=== PATIENT | male | born 1945 | race Caucasian/White ===

== ENCOUNTER 2016-03-31 14:06 | Inpatient (IN) | payer MEDICARE, MEDICAID ==
[~2016-03-31] VITALS: Ht 172.7 cm; Wt 72.6 kg
[~2016-03-31 14:06] MED LIST: ATENOLOL25 MG ORAL
[2016-03-31] MEDS ORDERED: COREG3.125 MG ORAL (15:40)
[2016-03-31] MEDS ORDERED: ASPIR 8181 MG ORAL (15:40)
[2016-03-31] MEDS ORDERED: MAGNESIUM ALUMIN1 GM ORAL (15:40)
[2016-03-31] MEDS ORDERED: VITAMIN D250000 UNI1 ORAL (15:41)
[2016-03-31] MEDS ORDERED: ELIQUIS5 MG PO (15:41)
[2016-03-31] MEDS ORDERED: LIPITOR20 MG ORAL (15:44)
[2016-03-31] MEDS ORDERED: LISINOPRIL30 MG ORAL (15:44)
[2016-03-31] MEDS ORDERED: MIRALAX17 G2 ORAL (15:46)
[2016-03-31] MEDS ORDERED: MULTI VITAMIN1 EACH ORAL (15:46)
[2016-03-31] MEDS ORDERED: MILK OF MA400 MG/51 ORAL (15:46)
[2016-03-31] MEDS ORDERED: MELATONIN3 M2 PO (15:46)
[2016-03-31] MEDS ORDERED: NORVASC10 MG ORAL ×2 (15:47→15:51)
[2016-03-31] MEDS ORDERED: PEPCID20 MG ORAL ×2 (15:47→15:51)
[2016-03-31] MEDS ORDERED: NICODERM CQ1 EAC3 TD (15:47)
[2016-03-31] MEDS ORDERED: ZOFRAN ODT4 MG ORAL (15:51)
[2016-03-31] MEDS ORDERED: SEROQUEL50 MG ORAL (15:51)
[2016-03-31] MEDS ORDERED: ACETAMINOPHEN120 MG ORAL (15:51)
[2016-03-31] MEDS ORDERED: PROZAC20 MG ORAL (15:51)
[2016-03-31] MEDS ORDERED: TRAZODONE HCL50 MG ORAL (15:51)
[2016-03-31] MEDS ORDERED: SENNA8.6 M2 PO (15:51)
[2016-03-31 15:53] LABS: BASOPHILS % (AUTO) 1.3 % (0.0-2.0); EOSINOPHILS % (AUTO) 2.2 % (0.0-3.0); LYMPHOCYTES % (AUTO) 16.4 % (20.0-45.0); MEAN CORPUSCULAR HEMOGLOBIN 31.4 PG (27.0-31.0); MEAN CORPUSCULAR HGB CONC 34.7 G/DL (32.0-36.0); MEAN CORPUSCULAR VOLUME 91 FL (80-99); MONOCYTES % (AUTO) 10.2 % (1.0-10.0); NEUTROPHILS % (AUTO) 69.9 % (45.0-75.0); PLATELET COUNT 251 K/UL (150-450); RED BLOOD COUNT 3.92 M/UL (4.70-6.10); RED CELL DISTRIBUTION WIDTH 13.2 % (11.6-14.8); WHITE BLOOD COUNT 10.2 K/UL (4.8-10.8)
[2016-03-31 15:59] VITALS: BP 113/56
[2016-03-31 16:09] LABS: ALANINE AMINOTRANSFERASE 23 U/L (3-41); ALBUMIN/GLOBULIN RATIO 1.3 (1.0-2.7); ANION GAP 13 (5-15); ASPARTATE AMINO TRANSFERASE 23 U/L (5-40); CALCIUM 9.2 mg/dL (8.6-10.2); CARBON DIOXIDE 24 mEQ/L (20-30); CHLORIDE 98 mEQ/L (98-107); CREATININE 0.9 mg/dL (0.7-1.2); GLOMERULAR FILTRATION RATE > 60 mL/min (>60); HEMOLYSIS 46; POTASSIUM 4.6 mEQ/L (3.4-4.9); SODIUM 135 mEQ/L (135-145)
[2016-03-31 16:10] LABS: TROPONIN I < 0.30 ng/mL (<=0.30)
[2016-03-31 16:19] LABS: CKMB 2.8 ng/mL (< 6.7)
--- NOTE | 2016-03-31 16:30 | Emergency Room Report ---
History of Present Illness General Chief Complaint: Chest Pain Source: Patient, Medical Record, EMS Present Illness HPI 70-year-old male presents to ED for evaluation. Per EMS patient complaining of chest pain at his complex and home. Symptoms started approximately 45 minutes prior to arrival. Nursing staff noticed that patient was pointing at his chest. Patient is aphasic due to stroke and is unable to provide any additional history. Patient was given aspirin and nitroglycerin by EMS. Upon arrival patient showing no signs of distress. Denies any chest pain at this time. No reported fevers or chills. No reported shortness of breath. No reported cough. No other aggravating or relieving factors. No other associated symptoms Allergies: Coded Allergies: PENICILLINS (Verified Allergy, Unknown, 09/24/15) Uncoded Allergies: PENICILINS (Allergy, Unknown, 03/31/16) Patient History Past Medical History: HTN, GERD, CVA/TIA, psych hx Social History: Denies: alcohol use, drug use, smoking Immunizations: UTD Reviewed Nursing Documentation: PMH: Agreed, PSxH: Agreed Nursing Documentation-PMH Hx Hypertension: Yes Hx Cancer: No Hx Gastrointestinal Problems: Yes - GERD History Of Psychiatric Problem: Yes - Major Depression, Schizoaffective disorder Hx Neurological Problems: No Hx Cerebrovascular Accident: Yes - right sided weakness, aphasia, dysphagia Review of Systems All Other Systems: negative except mentioned in HPI Physical Exam Vital Signs Date Time Temp Pulse Resp B/P Pulse Ox O2 Delivery O2 Flow Rate FiO2 03/31/16 14:05 98.4 87 18 147/70 98 Room Air Sp02 EP Interpretation: reviewed, normal General Appearance: no apparent distress, alert, GCS 15, non-toxic Head: normocephalic, atraumatic Eyes: bilateral eye PERRL, bilateral eye normal inspection ENT: hearing grossly normal, normal pharynx, no angioedema, normal voice Neck: full range of motion, supple/symm/no masses Respiratory: chest non-tender, lungs clear, normal breath sounds, speaking full sentences Cardiovascular #1: regular rate, rhythm, no edema Cardiovascular #2: 2+ carotid (R), 2+ carotid (L), 2+ radial (R), 2+ radial (L) , 2+ dorsalis pedis (R), 2+ dorsalis pedis (L) Gastrointestinal: normal bowel sounds, non tender, soft, non-distended, no guarding, no rebound Rectal: deferred Genitourinary: normal inspection, no CVA tenderness Musculoskeletal: back normal, gait/station normal, normal range of motion, non- tender Neurologic: alert, motor strength/tone normal, sensory intact, aphasia Psychiatric: mood/affect normal, no suicidal/homicidal ideation Reflexes: 3+ bicep (R), 3+ bicep (L), 3+ tricep (R), 3+ tricep (L), 3+ knee (R) , 3+ knee (L) Skin: normal color, no rash, warm/dry, well hydrated Lymphatic: no adenopathy Medical Decision Making Diagnostic Impression: Primary Impression: ACS (acute coronary syndrome) ER Course Hospital Course 70-year-old male presents ED complaining of chest pain at convalescent home. Improved with aspirin and nitroglycerin Differential diagnoses include: MO/unstable angina, contusion, muscle strain, PTX, rib fracture Clinical course Patient placed on stretcher. on cardiac surgeon. After initial history and physical I ordered labs, EKG, chest x-ray labs reviewed- no leukocytosis, hb/hct stable, electrolytes ok, trop negative Chest x-ray- no acute process Case discussed with Dr. Ovalle/Farhan and he agreed to accept the patient to his service for further care and support I. I feel this is a highly complex case requiring extensive working including EKG/Rhythm strip, Xray/CT/US, Blood/urine lab work, repeat exams while in ED, and administration of strong opiates/narcotics for pain control, admission to hospital or close patient follow up. Diagnosis - ACS admitted to telemetry in serious condition Labs Test 03/31/16 15:30 03/31/16 16:25 White Blood Count 10.2 K/UL (4.8-10.8) Red Blood Count 3.92 M/UL (4.70-6.10) Hemoglobin 12.3 G/DL (14.2-18.0) Hematocrit 35.5 % (42.0-52.0) Mean Corpuscular Volume 91 FL (80-99) Mean Corpuscular Hemoglobin 31.4 PG (27.0-31.0) Mean Corpuscular Hemoglobin Concent 34.7 G/DL (32.0-36.0) Red Cell Distribution Width 13.2 % (11.6-14.8) Platelet Count 251 K/UL (150-450) Mean Platelet Volume 6.0 FL (6.5-10.1) Neutrophils (%) (Auto) 69.9 % (45.0-75.0) Lymphocytes (%) (Auto) 16.4 % (20.0-45.0) Monocytes (%) (Auto) 10.2 % (1.0-10.0) Eosinophils (%) (Auto) 2.2 % (0.0-3.0) Basophils (%) (Auto) 1.3 % (0.0-2.0) Sodium Level 135 mEQ/L (135-145) Potassium Level 4.6 mEQ/L (3.4-4.9) Chloride Level 98 mEQ/L (98-107) Carbon Dioxide Level 24 mEQ/L (20-30) Anion Gap 13 (5-15) Blood Urea Nitrogen 19 mg/dL (7-23) Creatinine 0.9 mg/dL (0.7-1.2) Estimat Glomerular Filtration Rate > 60 mL/min (>60) Glucose Level 118 mg/dL (74-106) Calcium Level 9.2 mg/dL (8.6-10.2) Total Bilirubin 0.2 mg/dL (0.0-1.2) Aspartate Amino Transf (AST/SGOT) 23 U/L (5-40) Alanine Aminotransferase (ALT/SGPT) 23 U/L (3-41) Alkaline Phosphatase 56 U/L (40-129) Total Creatine Kinase 46 U/L (38-174) Creatine Kinase MB 2.8 ng/mL (< 6.7) Creatine Kinase MB Relative Index 6.0 Troponin I < 0.30 ng/mL (<=0.30) Pro-B-Type Natriuretic Peptide 449 pg/mL (0-125) Total Protein 6.0 g/dL (6.6-8.7) Albumin 3.4 g/dL (3.5-5.2) Globulin 2.6 g/dL Albumin/Globulin Ratio 1.3 (1.0-2.7) EKG Diagnostic Results Rate: normal Rhythm: NSR ST Segments: other - twave inversions in lateral leads ASA given to the pt in ED: No - given by ems Rhythm Strip Diag. Results EP Interpretation: yes Rhythm: NSR, no PVC's, no ectopy Chest X-Ray Diagnostic Results EP Interpretation: Yes Findings: no consolidation, no effusion, no pneumothorax, no acute cardiopulmonary disease Number of Views: 1 Last Vital Signs Date Time Temp Pulse Resp B/P Pulse Ox O2 Delivery O2 Flow Rate FiO2 03/31/16 15:59 67 18 113/56 98 Room Air 03/31/16 14:05 98.4 Status: improved Disposition: ADMITTED INPATIENT Condition: Serious Referrals: PRABHU ALVARADO (PCP) TRINA HANLEY M.D. Mar 31, 2016 16:29
[2016-03-31 16:34] LABS: APPEARANCE,URINE CLEAR; KETONES,URINE 1+ (NEGATIVE); LEUKOCYTE ESTERASE ,URINE NEGATIVE (NEGATIVE); NITRITE,URINE NEGATIVE (NEGATIVE); PH,URINE 5 (4.5-8.0); PROTEIN,URINE NEGATIVE (NEGATIVE); UROBILINOGEN,URINE NORMAL MG/DL (0.0-1.0)
[2016-03-31 18:03] VITALS: BP 154/52
[2016-03-31 21:10] VITALS: BP 123/38
[2016-04-01 00:23] VITALS: BP 141/75
[2016-04-01] MEDS ORDERED: Norco 5mg/325mg tab ORAL PRN (00:30)
[2016-04-01] MEDS ORDERED: QUETIAPINE FUMA25 MG ORAL (00:50)
[2016-04-01] MEDS ORDERED: Miralax 17gm pkt ORAL PRN (01:00)
[2016-04-01] MEDS ORDERED: Milk of Magnesia 30ml Ud ORAL PRN (01:00)
[2016-04-01 04:21] VITALS: BP 137/70
[2016-04-01 04:56] LABS: EOSINOPHILS % (AUTO) 2.8 % (0.0-3.0); LYMPHOCYTES % (AUTO) 17.9 % (20.0-45.0); MEAN CORPUSCULAR HEMOGLOBIN 33.2 PG (27.0-31.0); MEAN CORPUSCULAR HGB CONC 37.2 G/DL (32.0-36.0); MEAN CORPUSCULAR VOLUME 89 FL (80-99); MONOCYTES % (AUTO) 11.3 % (1.0-10.0); PLATELET COUNT 216 K/UL (150-450); RED BLOOD COUNT 3.84 M/UL (4.70-6.10); RED CELL DISTRIBUTION WIDTH 12.6 % (11.6-14.8); WHITE BLOOD COUNT 9.1 K/UL (4.8-10.8)
[2016-04-01 05:08] LABS: ANION GAP 11 (5-15); CALCIUM 9.1 mg/dL (8.6-10.2); CARBON DIOXIDE 26 mEQ/L (20-30); CHLORIDE 107 mEQ/L (98-107); CREATININE 0.7 mg/dL (0.7-1.2); GLOMERULAR FILTRATION RATE > 60 mL/min (>60); HEMOLYSIS 11; POTASSIUM 4.6 mEQ/L (3.4-4.9); SODIUM 144 mEQ/L (135-145)
[2016-04-01 05:58] LABS: TROPONIN I < 0.30 ng/mL (<=0.30)
[2016-04-01 06:54] LABS: CHOLESTEROL 178 mg/dL (< 200); CHOLESTEROL/HDL RATIO 5.6 (3.3-4.4); HEMOGLOBIN A1C 5.6 % (< 6.0); LDL CHOLESTEROL (CALC.) 127 mg/dL (60-99)
[2016-04-01 07:51] VITALS: BP 189/88
[2016-04-01] MEDS ORDERED: Lisinopril 20mg tab ORAL SCH (09:00)
[2016-04-01] MEDS ORDERED: Aspirin Baby 81mg ORAL SCH (09:00)
[2016-04-01] MEDS ORDERED: Heparin 5000 units/ml inj SUBQ SCH ×2 (09:00→10:30)
[2016-04-01] MEDS: Eliquis 2.5mg tablet ORAL SCH ×2 (10:15→18:25)
[2016-04-01 10:57] LABS: TROPONIN I < 0.30 ng/mL (<=0.30)
[2016-04-01 11:21] VITALS: BP 148/76
--- NOTE | 2016-04-01 14:07 | GI Initial Consult Note ---
History of Present Illness General Date patient seen: Apr 01, 2016 Time patient seen: 14:00 Reason for Hospitalization: Chest Pain Referring physician: SALEEM WALL Reason for Consultation: ESOPHAGITIS Present Illness HPI 70-year-old male presents to ED for evaluation. Per EMS patient complaining of chest pain at his complex and home. Symptoms started approximately 45 minutes prior to arrival. Nursing staff noticed that patient was pointing at his chest. Patient is aphasic due to stroke and is unable to provide any additional history. Patient was given aspirin and nitroglycerin by EMS. Upon arrival patient showing no signs of distress. Denies any chest pain at this time. No reported fevers or chills. No reported shortness of breath. No reported cough. No other aggravating or relieving factors. No other associated symptoms GI NOTE: HPI as noted above. GI consulted for possible esophagitis/throat irritation. Pt seen on floor awake, A&Ox4 NAD with slurred speech due to hx of CVA/TIA . Per RN report patient ate 100 percent lunch with no active signs of nausea or vomiting. Pt agreed by nodding his head that originally he had chest pain but has now resolved. Noted troponin negative x 3. Denies any abdominal pain, diarrhea or constipation. Pt c/o of throat irritation. Stable H&H. He presents with mild anemia today. Unknown history of any endoscopic procedures. Home Meds Reported Medications Quetiapine Fumarate* (SEROQUEL*) 25 Mg Tablet, 25 MG ORAL QID Y for Agitation, TAB 04/01/16 Ondansetron Odt* (ZOFRAN ODT*) 4 Mg Tab.rapdis, 4 MG ORAL Q6H Y for Nausea & Vomiting, #30 TAB 03/31/16 Acetaminophen* (TYLENOL*) 120 Mg Supp.rect, 325 MG ORAL Q4H Y for Mild Pain/ Temp > 100.5, SUPP 03/31/16 Trazodone Hcl* (DESYREL*) 50 Mg Tablet, 50 MG ORAL BEDTIME, TAB 03/31/16 Sennosides (SENNA) 8.6 Mg Tablet, 8.6 MG PO BEDTIME, TAB 03/31/16 Fluoxetine Hcl* (PROZAC*) 20 Mg Capsule, 20 MG ORAL DAILY, CAP 03/31/16 Nicotine (NICODERM CQ) 1 Each Patch.td24, 1 EACH TD, PATCH 03/31/16 Famotidine (PEPCID) 20 Mg Tablet, 20 MG ORAL BID, #7 TAB 0 Refills 03/31/16 Amlodipine Besylate (Norvasc) 10 Mg Tablet, 10 MG ORAL DAILY, TAB 03/31/16 Multivitamin (MULTI VITAMIN DAILY) 1 Each Tablet, 1 TAB ORAL DAILY, #30 TAB 0 Refills 03/31/16 Polyethylene Glycol 3350* (MIRALAX*) 17 Gm Powd.pack, 17 GM ORAL DAILY Y for Constipation, PACKET 03/31/16 Magnesium Hydroxide* (MILK OF MAGNESIA*) 400 Mg/5 Ml Oral.susp, 30 ML ORAL DAILY Y for Constipation, ML 03/31/16 Melatonin (Melatonin) 3 Mg Tab.rapdis, 3 MG PO BEDTIME, TAB 03/31/16 Lisinopril* (LISINOPRIL*) 30 Mg Tablet, 20 MG ORAL DAILY, TAB 03/31/16 Atorvastatin Calcium* (LIPITOR*) 20 Mg Tablet, 20 MG ORAL BEDTIME, TAB 03/31/16 Ergocalciferol (Vitamin D2)* (VITAMIN D*) 50,000 Unit Capsule, 1 CAP ORAL ONCE A WEEK, CAP 03/31/16 Apixaban (ELIQUIS) 5 Mg Tablet, 5 MG PO BID, TAB 03/31/16 Carvedilol (Coreg) 3.125 Mg Tablet, 3.125 MG ORAL EVERY 12 HOURS, TAB 03/31/16 Aspirin* (ASPIR 81*) 81 Mg Tablet.dr, 81 MG ORAL DAILY, TAB 03/31/16 Aluminum Silicate Magnesium (MAGNESIUM ALUMINUM SILICATE) 1 Gm Powder, 30 ML ORAL EVERY 4 HOURS Y for heartburn, GM 03/31/16 Discontinued Reported Medications Quetiapine Fumarate (SEROQUEL) 50 Mg Tablet, 25 MG ORAL DAILY, #15 TAB 0 Refills 03/31/16 Famotidine (PEPCID) 20 Mg Tablet, 20 MG ORAL BEDTIME, #7 TAB 0 Refills 03/31/16 Amlodipine Besylate (Norvasc) 10 Mg Tablet, 10 MG ORAL DAILY, TAB 03/31/16 Atenolol* (TENORMIN*) 25 Mg Tablet, 12.5 MG ORAL DAILY, TAB 09/24/15 Med list reviewed/reconciled: Yes Allergies: Coded Allergies: PENICILLINS (Verified Allergy, Unknown, 09/24/15) Uncoded Allergies: PENICILINS (Allergy, Unknown, 03/31/16) Patient History Limited by: medical condition - dysphagia PMH Narrative Past Medical History: HTN, GERD, CVA/TIA, psych hx Social History: Denies: alcohol use, drug use, smoking Immunizations: UTD Reviewed Nursing Documentation: PMH: Agreed, PSxH: Agreed Nursing Documentation-PMH Hx Hypertension: Yes Hx Cancer: No Hx Gastrointestinal Problems: Yes - GERD History Of Psychiatric Problem: Yes - Major Depression, Schizoaffective disorder Hx Neurological Problems: No Hx Cerebrovascular Accident: Yes - right sided weakness, aphasia, dysphagia Review of Systems All Other Systems: negative except mentioned in HPI Physical Exam Vital Signs Date Time Temp Pulse Resp B/P Pulse Ox O2 Delivery O2 Flow Rate FiO2 03/31/16 14:05 98.4 87 18 147/70 98 Room Air Sp02 EP Interpretation: reviewed Labs Laboratory Tests Test 03/31/16 15:30 03/31/16 16:25 04/01/16 04:15 04/01/16 10:15 White Blood Count 10.2 K/UL (4.8-10.8) 9.1 K/UL (4.8-10.8) Red Blood Count 3.92 M/UL (4.70-6.10) L 3.84 M/UL (4.70-6.10) L Hemoglobin 12.3 G/DL (14.2-18.0) L 12.8 G/DL (14.2-18.0) L Hematocrit 35.5 % (42.0-52.0) L 34.3 % (42.0-52.0) L Mean Corpuscular Volume 91 FL (80-99) 89 FL (80-99) Mean Corpuscular Hemoglobin 31.4 PG (27.0-31.0) H 33.2 PG (27.0-31.0) H Mean Corpuscular Hemoglobin Concent 34.7 G/DL (32.0-36.0) 37.2 G/DL (32.0-36.0) H Red Cell Distribution Width 13.2 % (11.6-14.8) 12.6 % (11.6-14.8) Platelet Count 251 K/UL (150-450) 216 K/UL (150-450) Mean Platelet Volume 6.0 FL (6.5-10.1) L 5.0 FL (6.5-10.1) L Neutrophils (%) (Auto) 69.9 % (45.0-75.0) 67.0 % (45.0-75.0) Lymphocytes (%) (Auto) 16.4 % (20.0-45.0) L 17.9 % (20.0-45.0) L Monocytes (%) (Auto) 10.2 % (1.0-10.0) H 11.3 % (1.0-10.0) H Eosinophils (%) (Auto) 2.2 % (0.0-3.0) 2.8 % (0.0-3.0) Basophils (%) (Auto) 1.3 % (0.0-2.0) 1.0 % (0.0-2.0) Sodium Level 135 mEQ/L (135-145) 144 mEQ/L (135-145) Potassium Level 4.6 mEQ/L (3.4-4.9) 4.6 mEQ/L (3.4-4.9) Chloride Level 98 mEQ/L (98-107) 107 mEQ/L (98-107) Carbon Dioxide Level 24 mEQ/L (20-30) 26 mEQ/L (20-30) Anion Gap 13 (5-15) 11 (5-15) Blood Urea Nitrogen 19 mg/dL (7-23) 18 mg/dL (7-23) Creatinine 0.9 mg/dL (0.7-1.2) 0.7 mg/dL (0.7-1.2) Estimat Glomerular Filtration Rate > 60 mL/min (>60) > 60 mL/min (>60) Glucose Level 118 mg/dL (74-106) H 108 mg/dL (74-106) H Calcium Level 9.2 mg/dL (8.6-10.2) 9.1 mg/dL (8.6-10.2) Total Bilirubin 0.2 mg/dL (0.0-1.2) Aspartate Amino Transf (AST/SGOT) 23 U/L (5-40) Alanine Aminotransferase (ALT/SGPT) 23 U/L (3-41) Alkaline Phosphatase 56 U/L (40-129) Total Creatine Kinase 46 U/L (38-174) Creatine Kinase MB 2.8 ng/mL (< 6.7) Creatine Kinase MB Relative Index 6.0 Troponin I < 0.30 ng/mL (<=0.30) < 0.30 ng/mL (<=0.30) < 0.30 ng/mL (<=0.30) Pro-B-Type Natriuretic Peptide 449 pg/mL (0-125) H Total Protein 6.0 g/dL (6.6-8.7) L Albumin 3.4 g/dL (3.5-5.2) L Globulin 2.6 g/dL Albumin/Globulin Ratio 1.3 (1.0-2.7) Urine Color Yellow Urine Appearance Clear Urine pH 5 (4.5-8.0) Urine Specific [place] 1.025 (1.005-1.035) Urine Protein Negative (NEGATIVE) Urine Glucose (UA) Negative (NEGATIVE) Urine Ketones 1+ (NEGATIVE) H Urine Occult Blood Negative (NEGATIVE) Urine Nitrite Negative (NEGATIVE) Urine Bilirubin Negative (NEGATIVE) Urine Urobilinogen Normal MG/DL (0.0-1.0) Urine Leukocyte Esterase Negative (NEGATIVE) Hemoglobin A1c 5.6 % (< 6.0) Triglycerides Level 96 mg/dL (< 150) Cholesterol Level 178 mg/dL (< 200) LDL Cholesterol 127 mg/dL (60-99) H HDL Cholesterol 32 mg/dL (> 60) Cholesterol/HDL Ratio 5.6 (3.3-4.4) H Thyroid Stimulating Hormone (TSH) 1.710 uIU/mL (0.300-4.500) General Appearance: no apparent distress, alert Head: normocephalic EENT: PERRL/EOMI Neck: supple Respiratory: no respiratory distress Cardiovascular: normal rate Gastrointestinal: normal inspection, non tender, soft, normal bowel sounds Rectal: deferred Neurologic: normal inspection, alert, oriented x3, responsive Psychiatric: judgement/insight normal Skin: normal inspection, normal color, no rash, warm/dry Lymphatic: normal inspection, no adenopathy Current Medications Current Medications Medications (Trade) Dose Ordered Sig/Malorie Route PRN Reason Start Time Stop Time Status Last Admin Dose Admin Acetaminophen (Tylenol) 650 mg Q4H PRN ORAL Mild Pain/Temp > 100.5 04/01/16 01:00 05/01/16 00:59 Acetaminophen/ Hydrocodone Bitart (Clarence 5/325) 1 tab Q6H PRN ORAL For Pain 04/01/16 00:30 04/08/16 00:29 Amlodipine Besylate (Norvasc) 10 mg DAILY ORAL 04/01/16 09:00 05/01/16 08:59 04/01/16 09:12 Apixaban (Eliquis) 5 mg BID ORAL 04/01/16 10:30 05/01/16 10:29 04/01/16 10:15 Aspirin (ASA) 81 mg DAILY ORAL 04/01/16 09:00 05/01/16 08:59 04/01/16 09:12 Atorvastatin Calcium (Lipitor) 20 mg BEDTIME ORAL 04/01/16 21:00 05/01/16 20:59 Carvedilol (Coreg) 3.125 mg EVERY 12 HOURS ORAL 04/01/16 09:00 05/01/16 08:59 04/01/16 09:11 Fluoxetine HCl (PROzac) 20 mg DAILY ORAL 04/01/16 09:00 05/01/16 08:59 04/01/16 09:12 Heparin Sodium (Porcine) (Heparin 5000 units/ml) 5,000 units EVERY 12 HOURS SUBQ 04/01/16 10:30 05/01/16 10:29 04/01/16 10:16 Lisinopril (Prinivil) 20 mg DAILY ORAL 04/01/16 09:00 05/01/16 08:59 04/01/16 09:12 Magnesium Hydroxide (Mom) 30 ml DAILYPRN PRN ORAL Constipation 04/01/16 01:00 05/01/16 00:59 Nicotine (Nicoderm) 1 patch Q24H TDERMAL 04/01/16 09:00 05/01/16 08:59 04/01/16 10:15 Ondansetron HCl (Zofran ODT) 4 mg Q6H PRN ORAL Nausea & Vomiting 04/01/16 01:00 05/01/16 00:59 Pantoprazole (Protonix) 40 mg DAILY ORAL 04/02/16 09:00 05/02/16 08:59 Polyethylene Glycol (Miralax) 17 gm DAILY PRN ORAL Constipation 04/01/16 01:00 05/01/16 00:59 Quetiapine Fumarate (SEROquel) 25 mg QIDPRN PRN ORAL Agitation 04/01/16 01:00 05/01/16 00:59 Sucralfate (Carafate) 1 gm FOUR TIMES A DAY ORAL 04/01/16 18:00 05/01/16 17:59 Trazodone HCl (Desyrel) 50 mg BEDTIME ORAL 04/01/16 21:00 05/01/16 20:59 GI: Plan Problems: (1) Esophagitis (2) Hypoalbuminemia (3) Anemia (4) ACS (acute coronary syndrome) (5) Non-compliant patient Plan okay for DC per GI standpoint stable H&H no active s/sx of bleeding denies any pain troponin negative x 3 tolerated diet ppi + Carafate outpatient GI procedures Discussed with Dr. uMllen. Thank you for referring this patient. Tara Byrd N.P. Apr 01, 2016 14:07
[2016-04-01 16:00] VITALS: BP 151/75
[2016-04-01] MEDS ORDERED: Sucralfate 1gm tab ORAL SCH (18:00)
--- NOTE | 2016-04-01 18:17 | History and Physical Report ---
DATE OF ADMISSION: 03/31/2016 CHIEF COMPLAINT: Retrosternal pain. HISTORY OF PRESENT ILLNESS: This is a 70-year-old male from [facility]. The patient was transferred by paramedics due to retrosternal pain. The patient is a very poor historian. The patient is severely dysarthric due to a stroke. PAST MEDICAL HISTORY: 1. Status post CVA. 2. Hypertensive cardiovascular disease. MEDICATIONS: Tylenol, milk of magnesia as needed, amlodipine, Eliquis, baby aspirin, atorvastatin, Coreg, vitamin B2, famotidine, Prozac, lisinopril, melatonin, multivitamins, nicotine patch, Zofran as needed, MiraLAX, Seroquel, Senna, and trazodone. ALLERGIES: Penicillin. SOCIAL HISTORY: Unable to obtain secondary to mental status. FAMILY HISTORY: Unable to obtain secondary to mental status. REVIEW OF SYSTEMS: Unable to obtain secondary to mental status. REVIEW OF SYSTEMS: Unable to obtain due to mental status. PHYSICAL EXAMINATION: GENERAL: This is an elderly male, who is in no acute distress. VITAL SIGNS: Blood pressure 148/76, pulse 62 regular, respirations 18, temperature 96.1. HEENT: Head is normocephalic and atraumatic. Pupils are equal, round, reactive to light and accommodation consensually. NECK: Supple. Trachea midline. There was no lymphadenopathy or thyromegaly. LUNGS: Clear to auscultation and percussion. HEART: Regular rate and rhythm without rubs, murmurs, or gallops. ABDOMEN: Soft and nontender. Bowel sounds were active. EXTREMITIES: No clubbing, cyanosis, or edema. NEUROLOGIC: He is severely dysarthric. He has a right hemiparesis. LABORATORY AND ANCILLARY DATA: BMP and CBC within normal limits. Troponin level x3 within normal limits. EKG normal sinus rhythm, within normal limits. ASSESSMENT: 1. Retrosternal pain, most likely due to his esophagitis. 2. Status post cerebrovascular accident. 3. Hypertensive cardiovascular disease. PLAN: 1. GI consult to be advised. 2. Continue current therapy. Hunter Hendricks M.D. DR: [place] JOB#: [id number] CC:
[2016-04-01] MEDS ORDERED: Atorvastatin 20mg tab ORAL SCH (21:00)
[2016-04-01] MEDS ORDERED: TraZODone 50mg tab ORAL SCH (21:00)
--- NOTE | 2016-04-02 13:43 | Cardiology Report ---
APPROVED REPORT EXAM: Two-dimensional and M-mode echocardiogram with Doppler and color Doppler. INDICATION Chest Pain M-Mode DIMENSIONS IVSd2.4 (0.7-1.1cm)Left Atrium (MM)3.4 (1.6-4.0cm) LVDd4.5 (3.5-5.6cm)Aortic Root3.5 (2.0-3.7cm) PWd1.4 (0.7-1.1cm)Aortic Cusp Exc.1.6 (1.5-2.0cm) LVDs3.1 (2.5-4.0cm) PWs1.6 cm Technically difficult study due to poor acoustic windows. Study quality precludes accurate assessment of regional wall motion and vavlular definition A color flow and spectral Doppler study was performed and revealed: Trace aortic regurgitation. Trace mitral regurgitation. Mitral diastolic velocities suggest reduced left ventricular relaxation (Grade I). Trace tricuspid regurgitation. Tricuspid systolic velocities suggests peak right ventricular systolic pressure of 10mmHg.
--- NOTE | 2016-04-03 10:33 | Diagnostic Imaging Report ---
Indications: Chest pain Technique: Portable AP chest Findings: Comparison: 09/24/2015 Patient rotation limits evaluation. Cardiac silhouette is decreased in size. Pulmonary vascular redistribution, bilateral interstitial infiltrates, bibasal pleural effusions have resolved. Lungs and pleura currently clear. IMPRESSION: No current evidence of acute cardiopulmonary disease
--- NOTE | 2016-04-03 14:58 | Cardiology Report ---
APPROVED REPORT EKG Measurement Heart [id number] Normal sinus rhythm with sinus arrhythmia T wave abnormality, consider inferolateral ischemia Abnormal ECG
--- NOTE | 2016-04-04 08:05 | Discharge Summary ---
Discharge Summary Hospital Course Date of Admission Mar 31, 2016 at 15:23 Date of Discharge Apr 01, 2016 at 19:35 Admitting Diagnosis ACS ANDREIA Cedeno is a 70 year old male who was admitted on Mar 31, 2016 at 15:23 for Acute Coronary Syndrome Hospital Course dc summary dictated #[id number] due to rapid and unexpected improvement in symptoms in one day patient was discharged 04/01/2016 Discharge Discharge Disposition Patient was discharged to SNF/Subacute Facility(03) Discharge Diagnoses: Jose Eduardo ([place])Yelena NP Apr 04, 2016 08:05
--- NOTE | 2016-04-05 01:57 | Discharge Summary 2 SIG ---
DATE OF ADMISSION: 03/31/2016 DATE OF DISCHARGE: 04/01/2016 CONDITION: Stable. DISPOSITION: The patient discharged to senior care facility where he resides. REASON FOR HOSPITALIZATION: 70-year-old male, was sent from the senior care facility with complaint of retrosternal pain. The patient with underlying history of esophagitis. HOSPITAL COURSE: The patient was placed on med/surg floor. Serial troponin x3 were negative. EKG revealed normal sinus rhythm. No ST changes. Thus, the patient was ruled out for acute VA. GI consult was requested. Dr. Mullen seen the patient. Hemoglobin and hematocrit WERE stable. Diet advanced. The patient WAS able to tolerate diet. No active signs and symptoms of bleeding. The patient on PPI and Carafate. No abdominal pain. Tolerates diet. GI cleared for discharge and recommended outpatient GI procedure. While in the hospital, DVT prophylaxis provided. The patient's home medication including aspirin, statin, and blood pressure medications were all resumed. Chest pain resolved. Due to rapid and unexpected improvement in his condition, the patient was discharged in one day. DISCHARGE MEDICATIONS: See medication reconciliation list. FINAL DIAGNOSES: Include, 1. Retrosternal pain secondary to esophagitis. 2. Esophagitis. 3. History of recent cerebrovascular accident. 4. Hypertensive cardiovascular disease. 5. Noncompliance. 6. Anemia. DISCHARGE INSTRUCTIONS: The patient was discharged to senior care facility. FOLLOWUP: Follow up with medical doctor at the facility. Outpatient GI procedure recommended. Closely monitor hemoglobin and hematocrit. Hunter Hendricks M.D. I have been assigned to dictate discharge summary on this account and I was not involved in the patient's management. Yelena Whitt ([place]anchtein) N.PMoreno DR: [place] JOB#: [id number] CC: DELISA
[2016-06-13] MEDS ORDERED: ISOSORBIDE MONO30 M1 PO (13:06)
== END 2016-04-01 19:35 | DRG 392 ==
LOC: ENRESERVDT → ENRESERVTM → EDBD 14:06 → EMR 14:27 → 2E 15:23 → EDBEDREQ 17:18 → 2E 04-01 00:09
DX: K20.9 Esophagitis, unspecified (principal); I11.9 Hypertensive heart disease without heart failure; I69.320 Aphasia following cerebral infarction; E88.09 Other disorders of plasma-protein metabolism, not elsewhere classified; K21.9 Gastro-esophageal reflux disease without esophagitis; D64.9 Anemia, unspecified; I69.322 Dysarthria following cerebral infarction; Z88.0 Allergy status to penicillin; Z91.19 Patient's noncompliance with other medical treatment and regimen
CPT/HCPCS: 36415; 71010; 80048; 80053; 80061; 81003; 82550; 82553; 82962; 83036; 83880; 84443; 84484; 85025; 87081; 93005; 93306

== ENCOUNTER 2016-06-06 22:19 | Inpatient (IN) | payer MEDICARE, MEDICAID ==
[~2016-06-06] VITALS: Ht 170.2 cm; Wt 67.6 kg
[~2016-06-06 22:19] MED LIST changes: +ACETAMINOPHEN120 MG ORAL; +ASPIR 8181 MG ORAL; +COREG3.125 MG ORAL; +ELIQUIS5 MG PO; +LIPITOR20 MG ORAL; +LISINOPRIL30 MG ORAL; +MAGNESIUM ALUMIN1 GM ORAL; +MELATONIN3 M2 PO; +MILK OF MA400 MG/51 ORAL; +MIRALAX17 G2 ORAL; +MULTI VITAMIN1 EACH ORAL; +NICODERM CQ1 EAC3 TD; +NORVASC10 MG ORAL; +PEPCID20 MG ORAL; +PROZAC20 MG ORAL; +QUETIAPINE FUMA25 MG ORAL; +SENNA8.6 M2 PO; +SEROQUEL50 MG ORAL; +TRAZODONE HCL50 MG ORAL; +VITAMIN D250000 UNI1 ORAL; +ZOFRAN ODT4 MG ORAL
[2016-06-06 22:51] LABS: BASOPHILS % (AUTO) 1.9 % (0.0-2.0); EOSINOPHILS % (AUTO) 4.9 % (0.0-3.0); LYMPHOCYTES % (AUTO) 18.5 % (20.0-45.0); MEAN CORPUSCULAR HEMOGLOBIN 31.3 PG (27.0-31.0); MEAN CORPUSCULAR HGB CONC 34.6 G/DL (32.0-36.0); MEAN CORPUSCULAR VOLUME 90 FL (80-99); MEAN PLATELET VOLUME 5.9 FL (6.5-10.1); MONOCYTES % (AUTO) 10.1 % (1.0-10.0); NEUTROPHILS % (AUTO) 64.6 % (45.0-75.0); PLATELET COUNT 184 K/UL (150-450); WHITE BLOOD COUNT 8.5 K/UL (4.8-10.8)
[2016-06-06 23:01] VITALS: BP 116/64
[2016-06-06 23:03] LABS: ALANINE AMINOTRANSFERASE 27 U/L (3-41); ALBUMIN/GLOBULIN RATIO 1.4 (1.0-2.7); ANION GAP 14 (5-15); ASPARTATE AMINO TRANSFERASE 22 U/L (5-40); CALCIUM 9.7 mg/dL (8.6-10.2); CARBON DIOXIDE 27 mEQ/L (20-30); CHLORIDE 96 mEQ/L (98-107); CREATININE 0.9 mg/dL (0.7-1.2); GLOMERULAR FILTRATION RATE > 60 mL/min (>60); HEMOLYSIS 15; POTASSIUM 4.4 mEQ/L (3.4-4.9); SODIUM 137 mEQ/L (135-145); TOTAL PROTEIN 6.7 g/dL (6.6-8.7)
[2016-06-06 23:04] LABS: TROPONIN I < 0.30 ng/mL (<=0.30)
[2016-06-06 23:14] LABS: CKMB 2.1 ng/mL (< 6.7)
[2016-06-06] MEDS ORDERED: LISINOPRIL20 MG ORAL (23:22)
[2016-06-06] MEDS ORDERED: NITROGLYCERIN0.4 MG SL (23:22)
[2016-06-06] MEDS ORDERED: LORATADINE10 M1 PO (23:22)
[2016-06-07] VITALS (7 sets, daily range): BP systolic 113–168; BP diastolic 52–90
--- NOTE | 2016-06-07 01:05 | Emergency Room Report ---
History of Present Illness General Chief Complaint: Chest Pain Source: Patient, Medical Record Present Illness HPI 70-year-old male presents ED complaining of chest pain. Symptoms started today at the [facility]. Patient was given aspirin and nitroglycerin with symptoms improved. Patient denies any chest pain at this time. Denies any fevers or chills. Denies cough. No aggravating relieving factors. Denies any other associated symptoms Allergies: Coded Allergies: PENICILLINS (Verified Allergy, Unknown, 09/24/15) Patient History Past Medical History: HTN, ulcer, GERD, CVA/TIA Past Surgical History: none Pertinent Family History: none Social History: Denies: alcohol use, drug use, smoking Immunizations: UTD Reviewed Nursing Documentation: PMH: Agreed, PSxH: Agreed Nursing Documentation-PMH Hx Cardiac Problems: Yes Hx Hypertension: Yes Hx Cancer: No Hx Gastrointestinal Problems: Yes - stomach ulcer Hx Neurological Problems: Yes - cerebral infartion w/ Rt. hemiplegia Hx Cerebrovascular Accident: Yes - right sided weakness, aphasia, dysphagia Review of Systems All Other Systems: negative except mentioned in HPI Physical Exam Vital Signs Date Time Temp Pulse Resp B/P Pulse Ox O2 Delivery O2 Flow Rate FiO2 06/06/16 22:19 73 16 118/69 95 Room Air Sp02 EP Interpretation: reviewed, normal General Appearance: no apparent distress, alert, GCS 15, non-toxic Head: normocephalic, atraumatic Eyes: bilateral eye PERRL, bilateral eye normal inspection ENT: hearing grossly normal, normal pharynx, no angioedema, normal voice Neck: full range of motion, supple/symm/no masses Respiratory: chest non-tender, lungs clear, normal breath sounds, speaking full sentences Cardiovascular #1: regular rate, rhythm, no edema Cardiovascular #2: 2+ carotid (R), 2+ carotid (L), 2+ radial (R), 2+ radial (L) , 2+ dorsalis pedis (R), 2+ dorsalis pedis (L) Gastrointestinal: normal bowel sounds, non tender, soft, non-distended, no guarding, no rebound Rectal: deferred Genitourinary: normal inspection, no CVA tenderness Musculoskeletal: back normal, gait/station normal, normal range of motion, non- tender Neurologic: alert, oriented x3, responsive, motor strength/tone normal, sensory intact, speech normal Psychiatric: judgement/insight normal, memory normal, mood/affect normal, no suicidal/homicidal ideation Reflexes: 3+ bicep (R), 3+ bicep (L), 3+ tricep (R), 3+ tricep (L), 3+ knee (R) , 3+ knee (L) Skin: normal color, no rash, warm/dry, well hydrated Lymphatic: no adenopathy Medical Decision Making Diagnostic Impression: Primary Impression: ACS (acute coronary syndrome) ER Course Hospital Course 70-year-old male presents ED complaining of chest pain. Relieved with aspirin and nitroglycerin Differential diagnoses include: KS/unstable angina, contusion, muscle strain, PTX, rib fracture Clinical course Patient placed on stretcher. on hospital monitor. After initial history and physical I ordered labs, EKG, chest x-ray labs reviewed- no leukocytosis, hb/hct stable, electrolytes ok, trop negative Chest x-ray- no acute process EKG - no acute changes, flattened twaves in lateral leads Case discussed with Dr. Ovalle and he agreed to accept the patient to his service for further care and support I. I feel this is a highly complex case requiring extensive working including EKG/Rhythm strip, Xray/CT/US, Blood/urine lab work, repeat exams while in ED, and administration of strong opiates/narcotics for pain control, admission to hospital or close patient follow up. Diagnosis - ACS admitted to telemetry in serious condition Labs Test 06/06/16 22:37 White Blood Count 8.5 K/UL (4.8-10.8) Red Blood Count 3.90 M/UL (4.70-6.10) Hemoglobin 12.2 G/DL (14.2-18.0) Hematocrit 35.3 % (42.0-52.0) Mean Corpuscular Volume 90 FL (80-99) Mean Corpuscular Hemoglobin 31.3 PG (27.0-31.0) Mean Corpuscular Hemoglobin Concent 34.6 G/DL (32.0-36.0) Red Cell Distribution Width 11.0 % (11.6-14.8) Platelet Count 184 K/UL (150-450) Mean Platelet Volume 5.9 FL (6.5-10.1) Neutrophils (%) (Auto) 64.6 % (45.0-75.0) Lymphocytes (%) (Auto) 18.5 % (20.0-45.0) Monocytes (%) (Auto) 10.1 % (1.0-10.0) Eosinophils (%) (Auto) 4.9 % (0.0-3.0) Basophils (%) (Auto) 1.9 % (0.0-2.0) Sodium Level 137 mEQ/L (135-145) Potassium Level 4.4 mEQ/L (3.4-4.9) Chloride Level 96 mEQ/L (98-107) Carbon Dioxide Level 27 mEQ/L (20-30) Anion Gap 14 (5-15) Blood Urea Nitrogen 25 mg/dL (7-23) Creatinine 0.9 mg/dL (0.7-1.2) Estimat Glomerular Filtration Rate > 60 mL/min (>60) Glucose Level 115 mg/dL (74-106) Calcium Level 9.7 mg/dL (8.6-10.2) Total Bilirubin 0.2 mg/dL (0.0-1.2) Aspartate Amino Transf (AST/SGOT) 22 U/L (5-40) Alanine Aminotransferase (ALT/SGPT) 27 U/L (3-41) Alkaline Phosphatase 63 U/L (40-129) Total Creatine Kinase 59 U/L (38-174) Creatine Kinase MB 2.1 ng/mL (< 6.7) Creatine Kinase MB Relative Index 3.5 Troponin I < 0.30 ng/mL (<=0.30) Pro-B-Type Natriuretic Peptide 166 pg/mL (0-125) Total Protein 6.7 g/dL (6.6-8.7) Albumin 4.0 g/dL (3.5-5.2) Globulin 2.7 g/dL Albumin/Globulin Ratio 1.4 (1.0-2.7) EKG Diagnostic Results Rate: normal Rhythm: NSR ST Segments: no acute changes ASA given to the pt in ED: No - given by ems Rhythm Strip Diag. Results EP Interpretation: yes Rhythm: NSR, no PVC's, no ectopy Chest X-Ray Diagnostic Results EP Interpretation: Yes Findings: no consolidation, no effusion, no pneumothorax, no acute cardiopulmonary disease Number of Views: 1 Last Vital Signs Date Time Temp Pulse Resp B/P Pulse Ox O2 Delivery O2 Flow Rate FiO2 06/07/16 00:37 64 20 113/52 96 Room Air Status: improved Disposition: ADMITTED INPATIENT Condition: Serious Referrals: PRABHU ALVARADO (PCP) TRINA HANLEY M.D. Jun 07, 2016 01:05
[2016-06-07] MEDS ORDERED: Milk of Magnesia 30ml Ud ORAL PRN (04:15)
[2016-06-07] MEDS ORDERED: Nitroglycerin Subl 0.4mg tab (Bottle Of 25) SL PRN (04:15)
[2016-06-07] MEDS ORDERED: Mylanta II UD 30ml ORAL PRN (04:30)
[2016-06-07] MEDS: Aspirin Baby 81mg ORAL SCH (08:53)
[2016-06-07] MEDS: Eliquis 2.5mg tablet ORAL SCH ×2 (08:53→17:28)
[2016-06-07] MEDS: Lisinopril 20mg tab ORAL SCH (08:54)
[2016-06-07 10:57] LABS: TROPONIN I < 0.30 ng/mL (<=0.30)
--- NOTE | 2016-06-07 11:41 | Diagnostic Imaging Report ---
Indication: Chest pain Technique: One view of the chest Comparison: 03/31/2016 Findings: Patient is slightly rotated. There are atelectatic changes at both lung bases, per the right. Lungs and pleural spaces are otherwise clear. Heart is borderline enlarged. Impression: Bilateral basilar atelectasis. No acute process otherwise Borderline cardiomegaly. This agrees with the preliminary interpretation provided by the emergency room physician
--- NOTE | 2016-06-07 20:17 | History and Physical Report ---
DATE OF ADMISSION: 06/06/2016 NOTE: INCOMPLETE DICTATION CHIEF COMPLAINT: Chest pain. HISTORY OF PRESENT ILLNESS: This is a 70-year-old male from [facility]. The patient was transferred via paramedics to the hospital emergency department with chest pain. The patient was given aspirin and nitroglycerin in the field and symptoms improved. The patient was admitted several times to this and another hospital with several symptoms. It is very difficult to understand the patient's symptoms as he is severely dysarthric due to stroke. The patient had minimal workup done in this hospital last admission which we ruled out acute myocardial ischemia. PAST MEDICAL HISTORY: 1. Hypertensive cardiovascular disease. 2. Status post cerebrovascular accident with dense right hemiplegia. 3. Peptic ulcer. 4. Gastroesophageal reflux disease. 5. Schizoaffective disorder. 6. Depression. 7. Hyperlipidemia. 8. Ischemic heart disease MEDICATIONS: Milk of magnesia, baby aspirin, Coreg, Eliquis, ergocalciferol, Lipitor, lisinopril, melatonin, multivitamins, Norvasc, Pepcid, Prozac, Senna, Seroquel, trazodone, Tylenol as needed. ALLERGIES: No known drug allergies. FAMILY HISTORY: Unable to obtain secondary to mental status. SOCIAL HISTORY: Unable to obtain secondary to mental status. REVIEW OF SYSTEMS: Unable to obtain secondary to mental status. REVIEW OF SYSTEMS: Unable to obtain secondary to mental status. PHYSICAL EXAMINATION: GENERAL: This is an elderly male who is in no acute distress. VITAL SIGNS: Blood pressure 168/81, pulse of 65 and regular, respirations 20, and temperature is 97.5 axillary. HEENT: The head is normocephalic and atraumatic. He has right facial droop. HEAD: Neck. Supple trachea midline. No lymphadenopathy or thyromegaly. LUNGS: Clear to auscultation and percussion. HEART: Regular rate and rhythm without rubs, murmurs, or gallops. Hunter Hendricks M.D. DR: [place] JOB#: [id number] CC:
[2016-06-07] MEDS: Atorvastatin 20mg tab ORAL SCH (21:32)
[2016-06-07] MEDS: TraZODone 50mg tab ORAL SCH (21:32)
--- NOTE | 2016-06-07 21:58 | History and Physical Report ---
DATE OF ADMISSION: 06/06/2016 ADDENDUM ALLERGIES: No known drug allergies. SOCIAL HISTORY: The patient lives in a snf. Habits, he is nonsmoker and nondrinker. There is no history of illicit drug abuse. FAMILY HISTORY: Unremarkable. PHYSICAL EXAMINATION: GENERAL: This is an elderly male, who is in no acute distress. VITAL SIGNS: Blood pressure 168/81, pulse 65 and regular, respirations 20, and temperature is 97.5 degrees axillary. HEENT: The head is normocephalic and atraumatic except he has a right facial droop. NECK: Supple. Trachea midline. There was no lymphadenopathy or thyromegaly. LUNGS: Clear to auscultation and percussion. HEART: Regular rate and rhythm without rubs, murmurs, or gallops. ABDOMEN: Soft and nontender. Bowel sounds are active. EXTREMITIES: No clubbing, cyanosis, or edema. NEUROLOGICAL: He is alert, but is severely dysarthric. There is right hemiplegia. LABORATORY AND ANCILLARY DATA: CBC within normal limits. Serum chemistry within normal limits. Glucose 115. Troponin level x2 within normal limits. EKG within normal limits. A 2D echo is pending. ASSESSMENT: 1. Chest pain, most likely atypical. 2. . PLAN: 1. Continue to rule out for acute myocardial ischemia. 2. Cardiology consult. 3. Continue snf medications. Hunter Hendricks M.D. DR: BEAU JOB#: [id number] CC:
[2016-06-08] VITALS: BP 142/62
[2016-06-08 04:00] VITALS: BP 101/62
--- NOTE | 2016-06-08 05:49 | Consultation ---
DATE OF CONSULTATION: 06/07/2016 CARDIOLOGY CONSULTATION: REQUESTING PHYSICIAN: Hunter Hendricks M.D. REASON FOR CONSULTATION: Chest pain evaluate for acute coronary syndrome. HISTORY OF PRESENT ILLNESS: This is an unfortunate 70-year-old male who resides at a [facility] facility, debilitated as a result of a prior stroke. He was transferred by paramedics to the emergency room for assessment of possible chest pain. The patient was apparently able to complained of chest pain at the facility and was given nitroglycerin in the field with improvement of symptoms. The patient has had multiple admissions in the past for chest pain complaint, but has not had any documented ischemia with his symptoms. The patient is severely dysarthric following the stroke and has a right-sided hemiparesis in addition to a psychiatric disorder. It is extremely difficult if not impossible at this time to get any verbal communication from him. He was hospitalized at this hospital approximately two months ago and ruled out for myocardial infarction when he presented with similar symptoms. PAST MEDICAL HISTORY: He does have past medical history notable for hypertensive heart disease, cerebrovascular accident with right hemiplegia and dysarthria, peptic ulcer disease with history of gastric ulcer, gastroesophageal reflux disease, schizoaffective disorder with depression, and hyperlipidemia. MEDICATIONS: Reviewed and reconciled. ALLERGIES: Penicillin. SOCIAL HISTORY: Negative for smoking, alcohol, or substance abuse. FAMILY HISTORY: Noncontributory. REVIEW OF SYSTEMS: Cannot be obtained from the patient due to communication limitations as described above. PHYSICAL EXAMINATION: VITAL SIGNS: Blood pressure in the emergency room was 168/81, subsequently 142/70, heart rate 66, respiratory rate 18, afebrile, and room air oxygen saturation 98%. HEENT: Normocephalic and atraumatic. Conjunctivae are pink. Oropharynx clear. NECK: Supple. No bruits. LUNGS: Clear. CARDIAC: Regular rhythm and rate. Normal S1, S2 with no murmur. ABDOMEN: Soft and nontender. EXTREMITIES: With no edema. NEUROLOGIC: Right hemiparesis and severe dysarthria noted. LABORATORY AND DIAGNOSTIC DATA: Chest x-ray revealed no acute process. EKG revealed sinus rhythm with nonspecific T-wave changes in the lateral leads. Troponin levels negative x2. Echocardiogram revealed normal ejection fraction. IMPRESSION AND PLAN: The patient is an unfortunate male presented to the emergency room with the complaints of chest pain at the [facility] although presently I am unable to obtain any verbal information from him in this regard. The patient does have risk factors for coronary disease, however, no associated clinical findings are suggestive of an acute coronary syndrome. The possibility of a gastrointestinal associated chest pain more likely recommend empiric proton pump inhibitor. Consider endoscopy. Review of prior records. Consider dobutamine echocardiogram as an outpatient if recurring symptoms with more features typical for ischemia. Chris Bonilla M.D. DR: Tory JOB#: [id number] CC:
[2016-06-08 08:40] VITALS: BP 150/65
[2016-06-08] MEDS: Aspirin Baby 81mg ORAL SCH (08:46)
[2016-06-08] MEDS: Lisinopril 20mg tab ORAL SCH (08:46)
[2016-06-08] MEDS: Eliquis 2.5mg tablet ORAL SCH ×2 (08:46→18:50)
[2016-06-08 11:45] VITALS: BP 125/63
--- NOTE | 2016-06-08 15:29 | General Progress Note ---
Assessment/Plan Assessment/Plan 70 year old maqn with multiple admissions for chest pain. High risk for CAD. Cannot obtain any history due to severe dysarthria. Suggest coronary imaging Subjective Allergies: Coded Allergies: PENICILLINS (Verified Allergy, Unknown, 09/24/15) Subjective Muttering unintelligently Objective Last 24 Hour Vital Signs Date Time Temp Pulse Resp B/P Pulse Ox O2 Delivery O2 Flow Rate FiO2 06/08/16 12:00 63 06/08/16 11:45 97.9 70 20 125/63 96 Room Air 06/08/16 08:46 80 150/65 06/08/16 08:46 80 150/65 06/08/16 08:46 150/65 06/08/16 08:40 97.0 80 20 150/65 97 Room Air 06/08/16 08:00 80 06/08/16 05:06 57 06/08/16 04:30 95 Room Air 06/08/16 04:00 97.2 60 16 101/62 Room Air 06/08/16 00:00 97.8 61 16 142/62 97 Room Air 06/07/16 23:55 68 06/07/16 21:35 67 140/84 06/07/16 20:00 66 06/07/16 20:00 99.0 67 19 140/84 94 Room Air 06/07/16 16:00 70 06/07/16 16:00 97.7 66 18 142/70 98 Room Air Intake and Output 06/07/16 06/08/16 19:00 07:00 Intake Total 240 ml Balance 240 ml Intake Oral 240 ml # Voids 4 Height (Feet): 5 Height (Inches): 7.00 Weight (Pounds): 149 Objective Cv RR Lungs CTA Pointing to his chest Abd SNT BS + E No CCE Neuro Rt. Hemiplegia PRABHU ALVARADO Jun 08, 2016 15:29
[2016-06-08 16:26] VITALS: BP 157/70
[2016-06-08 20:00] VITALS: BP 126/68
[2016-06-08] MEDS: Atorvastatin 20mg tab ORAL SCH (21:32)
[2016-06-08] MEDS: TraZODone 50mg tab ORAL SCH (21:32)
[2016-06-09] VITALS: BP 123/63
[2016-06-09 04:25] VITALS: BP 135/79
[2016-06-09] MEDS: Aspirin Baby 81mg ORAL SCH (08:38)
[2016-06-09 08:39] VITALS: BP 128/57
[2016-06-09] MEDS: Eliquis 2.5mg tablet ORAL SCH ×2 (08:39→19:42)
[2016-06-09] MEDS: Lisinopril 20mg tab ORAL SCH (08:39)
[2016-06-09 11:38] VITALS: BP 115/51
--- NOTE | 2016-06-09 13:41 | General Progress Note ---
Assessment/Plan Assessment/Plan 70 year old abdielqn with multiple admissions for chest pain. High risk for CAD. Cannot obtain any history due to severe dysarthria. Suggest coronary imaging Cardiac workup cannot be done in this hospital. EKG does show anteroseptal NH. No evidence of ACUTE NH. DC to SNF. Cannot get hold of Family. Subjective Allergies: Coded Allergies: PENICILLINS (Verified Allergy, Unknown, 09/24/15) Subjective Muttering unintelligently Objective Last 24 Hour Vital Signs Date Time Temp Pulse Resp B/P Pulse Ox O2 Delivery O2 Flow Rate FiO2 06/09/16 12:00 67 06/09/16 11:38 98.1 71 20 115/51 95 Room Air 06/09/16 08:39 67 135/79 06/09/16 08:39 67 135/79 06/09/16 08:39 135/79 06/09/16 08:39 97.5 63 20 128/57 95 Room Air 06/09/16 08:00 80 06/09/16 06:26 67 06/09/16 04:25 97.3 72 20 135/79 99 Room Air 06/09/16 00:00 98.1 86 20 123/63 96 Room Air 06/09/16 00:00 75 06/08/16 21:33 78 157/70 06/08/16 20:00 77 06/08/16 20:00 98.1 73 19 126/68 97 Room Air 06/08/16 16:26 97.7 78 20 157/70 96 Room Air Intake and Output 06/08/16 06/09/16 19:00 07:00 Intake Total 360 ml 240 ml Balance 360 ml 240 ml Intake Oral 360 ml 240 ml # Voids 3 Height (Feet): 5 Height (Inches): 7.00 Weight (Pounds): 149 Objective Cv RR Lungs CTA Pointing to his chest Abd SNT BS + E No CCE Neuro Rt. Hemiplegia PRABHU ALVARADO Jun 09, 2016 13:40
--- NOTE | 2016-06-09 14:05 | Cardiology Report ---
APPROVED REPORT EKG Measurement Heart [id number] OR 132P40 [id number] Normal sinus rhythm Nonspecific T wave abnormality Abnormal ECG
--- NOTE | 2016-06-09 14:06 | Cardiology Report ---
APPROVED REPORT EKG Measurement Heart [id number] ND 126P21 [id number] Normal sinus rhythm T wave abnormality, consider lateral ischemia Abnormal ECG
--- NOTE | 2016-06-09 14:40 | Cardiology Report ---
APPROVED REPORT EXAM: Two-dimensional and M-mode echocardiogram with Doppler and color Doppler. INDICATION Chest Pain Technically difficult study due to poor acoustic windows. M-mode measurements not obtainable due to cardiac structure. Study quality precludes accurate assessment of regional wall motion. Normal left ventricular chamber size, systolic function and wall motion. Left ventricular ejection fraction estimated to be 60-65 % to extend visualized. No evidence of pericardial fat or effusion. All other cardiac chamber sizes are within normal limits. Focal aortic valve sclerosis with adequate cusp excursion Thickened mitral valve leaflets with normal excursion. Mitral annulus and aortic root calcification. Pulmonic valve not well visualized. Normal tricuspid valve structure. IVC is normal in size with physiologic collapse. A color flow and spectral Doppler study was performed and revealed: No aortic regurgitation. No mitral regurgitation. Left ventricular diastolic dysfunction grade 1. No tricuspid regurgitation.
[2016-06-09 16:00] VITALS: BP 120/87
[2016-06-09 20:00] VITALS: BP 137/57
[2016-06-09] MEDS: TraZODone 50mg tab ORAL SCH (21:31)
[2016-06-09] MEDS: Atorvastatin 20mg tab ORAL SCH (21:32)
[2016-06-09] MEDS ORDERED: LORazepam Inj 2mg/ml 1ml ONE (22:15)
[2016-06-09] MEDS ORDERED: LORazepam Inj 2mg/ml 1ml IV ONE (22:30)
[2016-06-09] MEDS ORDERED: LORazepam Inj 2mg/ml 1ml IM ONE (22:40)
--- NOTE | 2016-06-10 00:17 | Progress Note ---
CARDIOLOGY PROGRESS NOTE: June 09, 2016 SUBJECTIVE: The patient's condition unchanged. Mumbling and non coherent speech. Not clear if and where patient has pain. OBJECTIVE: VITAL SIGNS: Stable. Lungs clear Reg S1S2. No murmur. No edema LABORATORY AND DIAGNOSTIC DATA: Troponins are negative. EKG with no acute changes. Echocardiogram with no evidence of wall motion abnormalities. ASSESSMENT AND PLAN: Chest pain etiology is not clear. Cardiac instability/coronary insufficiency unlikely based on current parameters. Recommend empiric antacid, antihypertensive, and antianginal therapy such as long acting nitrates. Chris Bonilla M.D. DR: Tory JOB#: [id number] CC: DELISA
[2016-06-10 00:54] VITALS: BP 130/65
--- NOTE | 2016-06-10 01:18 | Progress Note ---
DATE: 06/08/2016 CARDIOLOGY PROGRESS NOTE SUBJECTIVE: The patient was seen and evaluated. Case was discussed with Dr. Henrdicks. The patient is not able to give any history. He is dysarthric. He does point to his chest, but it is unclear what his symptoms are and no clarification can be obtained. Troponins have been negative. EKG reveals sinus rhythm and possible septal infarction of indeterminate with no acute changes. Prior echocardiograms have revealed normal ejection fraction with no wall motion abnormalities. OBJECTIVE: VITAL SIGNS: Blood pressure 150/65, pulse 80, and respirations 20. NECK: Supple. LUNGS: Clear. CARDIAC: Regular rhythm and rate. Normal S1 and S2 with no murmur. ABDOMEN: Soft. EXTREMITIES: Without edema. There is right hemiplegia. IMPRESSION: Chest pain, etiology unclear. No evidence of acute ischemia based on electrocardiographic laboratory values and likely got continued pain without any ischemic changes. Other considerations would include gastrointestinal associated pain due to his gastric ulcers based on history. PLAN: 1. Recommend proton pump inhibitor. 2. Empiric antihypertensive and antianginal therapy. 3. Unable to do further diagnostic workup on this patient at this time. Chris Bonilla M.D. DR: ELEN JOB#: [id number] CC:
[2016-06-10 04:11] VITALS: BP 133/76
[2016-06-10 08:00] VITALS: BP 139/87
[2016-06-10] MEDS ORDERED: Imdur 30mg tab ORAL SCH (09:00)
[2016-06-10] MEDS: Lisinopril 20mg tab ORAL SCH (09:26)
[2016-06-10] MEDS: Aspirin Baby 81mg ORAL SCH (09:27)
[2016-06-10] MEDS: Eliquis 2.5mg tablet ORAL SCH (09:27)
[2016-06-10 09:28] VITALS: BP 139/87
[2016-06-10] MEDS ORDERED: Haloperidol 5mg/ml Inj IM ONE (10:30)
--- NOTE | 2016-06-10 22:58 | Progress Note ---
DATE: 06/10/2016 CARDIOLOGY PROGRESS NOTE SUBJECTIVE: The case was discussed with Dr. Hendricks, his primary physician. The patient is unable to give a reliable history or comprehend any question. It is unclear from where his pain is coming from or it is actually is the pain that the patient is expressing. There has been no change in his condition since admission. OBJECTIVE: VITAL SIGNS: Blood pressure 139/87, pulse 65, respirations 18, and afebrile. NECK: Supple. LUNGS: Clear. CARDIAC: Regular. Normal S1 and S2. ABDOMEN: Soft. EXTREMITIES: No edema. IMPRESSION: 1. Cerebrovascular disease with severe dysarthria and hemiparesis. 2. Hypertensive heart disease. 3. Chest pain of unclear etiology with no signs of electrocardiographic or enzymatic abnormalities. PLAN: 1. Recommend empiric therapy with long-acting nitrates. 2. Anti-platelet therapy. 3. Anti-lipid therapy for LDL goal less than 100. 4. Consider further gastrointestinal workup in view of history of ulcers in the past. 5. Outpatient followup is appropriate. Chris Bonilla M.D. DR: ELEN JOB#: [id number] CC:
[2016-06-13] MEDS ORDERED: ISOSORBIDE MONO30 M1 PO (13:06)
--- NOTE | 2016-06-13 13:11 | Discharge Summary ---
Discharge Summary Hospital Course Date of Admission Jun 06, 2016 at 23:15 Date of Discharge Jun 10, 2016 at 10:40 Admitting Diagnosis ACS ANDREIA Cedeno is a 70 year old male who was admitted on Jun 06, 2016 at 23:15 for Acute Coronary Syndrome Hospital Course dc summary #[id number] Discharge Medications New Medications: Isosorbide Mononitrate (Isosorbide Mononitrate Er) 30 Mg Tab.er.24h 30 MG PO DAILY, #30 TAB Continued Medications: Acetaminophen* (Tylenol*) 120 Mg Supp.rect 325 MG ORAL Q4H PRN for Mild Pain/Temp > 100.5, SUPP Aluminum Silicate Magnesium (Magnesium Aluminum Silicate) 1 Gm Powder 30 ML ORAL EVERY 4 HOURS PRN for heartburn, GM Amlodipine Besylate (Norvasc) 10 Mg Tablet 10 MG ORAL DAILY, TAB Apixaban (Eliquis) 5 Mg Tablet 5 MG PO BID, TAB Aspirin* (Aspir 81*) 81 Mg Tablet.dr 81 MG ORAL DAILY, TAB Atorvastatin Calcium* (Lipitor*) 20 Mg Tablet 20 MG ORAL BEDTIME, TAB Carvedilol (Coreg) 3.125 Mg Tablet 3.125 MG ORAL EVERY 12 HOURS, TAB Ergocalciferol (Vitamin D2)* (Vitamin D*) 50,000 Unit Capsule 1 CAP ORAL ONCE A WEEK, CAP Famotidine (Pepcid) 20 Mg Tablet 20 MG ORAL BID, #7 TAB 0 Refills Fluoxetine Hcl* (Prozac*) 20 Mg Capsule 20 MG ORAL DAILY, CAP Lisinopril (Lisinopril*) 20 Mg Tablet 20 MG ORAL DAILY, TAB Lisinopril* (Lisinopril*) 30 Mg Tablet 20 MG ORAL DAILY, TAB Loratadine (Loratadine) 10 Mg Tab.rapdis 10 MG PO, TAB Magnesium Hydroxide* (Milk Of Magnesia*) 400 Mg/5 Ml Oral.susp 30 ML ORAL DAILY PRN for Constipation, ML Melatonin (Melatonin) 3 Mg Tab.rapdis 3 MG PO BEDTIME, TAB Multivitamin (Multi Vitamin Daily) 1 Each Tablet 1 TAB ORAL DAILY, #30 TAB 0 Refills Nicotine (Nicoderm Cq) 1 Each Patch.td24 1 EACH TD, PATCH Nitroglycerin (Nitroglycerin) 0.4 Mg Tab.subl 0.4 MG SL, TAB Ondansetron Odt* (Zofran Odt*) 4 Mg Tab.rapdis 4 MG ORAL Q6H PRN for Nausea & Vomiting, #30 TAB Polyethylene Glycol 3350* (Miralax*) 17 Gm Powd.pack 17 GM ORAL DAILY PRN for Constipation, PACKET Quetiapine Fumarate* (Seroquel*) 25 Mg Tablet 25 MG ORAL QID PRN for Agitation, TAB Sennosides (Senna) 8.6 Mg Tablet 8.6 MG PO BEDTIME, TAB Trazodone Hcl* (Desyrel*) 50 Mg Tablet 50 MG ORAL BEDTIME, TAB Discharge Condition Upon Discharge: stable Discharge Disposition Patient was discharged to SNF/Subacute Facility(03) Discharge Diagnoses: Discharge Instructions Discharge Instructions Special Instructions I have been assigned to complete a D/C Summary on this account. I was not involved in the patient management Yelena Whitt NP ([place]) Jun 13, 2016 13:11
--- NOTE | 2016-06-14 05:28 | Discharge Summary 2 SIG ---
DATE OF ADMISSION: 06/06/2016 DATE OF DISCHARGE: 06/10/2016 REASON FOR HOSPITALIZATION: 70-year-old male with history of hypertension and CVA, presented to emergency room complaining of chest pain. The patient was transferred from the [facility] facility. The patient was given aspirin and nitroglycerin with improvement in symptoms by radio presenter. At the time of presentation to ED, the patient denied any chest pain. No fever. No chills. No cough. The patient with a history of hypertension and CVA. Troponin was negative. EKG revealed nonspecific T-wave abnormalities. The patient was admitted to telemetry for further management. ADMITTING DIAGNOSES: 1. Chest pain, rule out acute coronary syndrome. 2. Hypertension. 3. History of cerebrovascular accident. HOSPITAL STAY: The patient was admitted to telemetry. EKG revealed T-wave abnormality in lateral leads. Cardiology followed the patient. No ST ischemic changes. Chest x-ray was negative. Troponin x2 was negative, therefore, ruled out for acute myocardial infarction. Echocardiogram subsequently revealed ejection fraction of 60% to 65%, normal left ventricular chamber size, systolic function and wall motion. No evidence of pericardial effusion. No evidence of valvular heart disease. Per Boat Dock Operator, he recommended continue statin, continue antiplatelet medication and recommended to add long acting nitrates. Blood pressure was managed with the current regimen and was stable. Per Cardiology, possibly gastrointestinal etiology such as gastroesophageal reflux disease or other GI pathology. Patient started on PPI and recommended to have an endoscopy as outpatient. Chest pain resolved. No shortness of breath. Pulse oximetry was stable on room air. Normotensive. Boat Dock Operator also recommended dobutamine echo as an outpatient. The patient was stable for discharge. DISCHARGE DIAGNOSES: 1. Chest pain of unclear etiology possible gastroesophageal reflux disease or other gastrointestinal etiology. 2. Cerebrovascular disease with severe dysarthria and hemiparesis. 3. Hypertensive heart disease. 4. Hyperlipidemia. DISCHARGE MEDICATIONS: See medication reconciliation list. DISCHARGE INSTRUCTIONS: The patient was discharged to [facility]. FOLLOWUP: Follow up with medical doctor at the facility. Recommended outpatient endoscopy and outpatient dobutamine echo test. Hunter Hendricks M.D. I have been assigned to dictate discharge summary on this account and I was not involved in the patient's management. Yelena Whitt N.P. ([place]) DR: YARELY JOB#: [id number] CC: DELISA
== END 2016-06-10 10:40 | DRG 392 ==
LOC: EDBD 22:19 → EMR 22:36 → 2E 23:15 → EDBEDREQ 06-07 01:10
DX: K21.9 Gastro-esophageal reflux disease without esophagitis (principal); I69.351 Hemiplegia and hemiparesis following cerebral infarction affecting right dominant side; I11.9 Hypertensive heart disease without heart failure; R07.89 Other chest pain; F25.9 Schizoaffective disorder, unspecified; E78.5 Hyperlipidemia, unspecified; I69.322 Dysarthria following cerebral infarction; Z88.0 Allergy status to penicillin
CPT/HCPCS: 36415; 71010; 80053; 82550; 82553; 83880; 84484; 85025; 87081; 93005; 93306